=== PATIENT | female | born 1950 | race Caucasian/White ===

== ENCOUNTER 2018-07-28 15:41 | Inpatient (IN) | payer MEDICARE, OTHER ==
[2018-07-28] VITALS (9 sets, daily range): BP systolic 105–139; BP diastolic 63–82
[~2018-07-28] VITALS: Ht 170.2 cm; Wt 118.0 kg
[2018-07-28] MEDS ORDERED: lidocaine 1%/epinephrine 1:100,000 injection 50ml vial ONE (16:33)
[2018-07-28] MEDS ORDERED: cefazolin/dext.iso 2gm/100ml 100 ML IV ONE (16:33)
[2018-07-28 16:46] LABS: BASOPHILS # (AUTO) 0.1 X10'3 (0-0.2); BASOPHILS % (AUTO) 1.2 % (0-1); EOSINOPHILS # (AUTO) 0.1 X10'3 (0-0.9); EOSINOPHILS % (AUTO) 1.5 % (0-6); HEMATOCRIT 42.2 % (35.0-45.0); HEMOGLOBIN 14.1 g/dl (12.0-16.0); LYMPHOCYTES # (AUTO) 3.5 X10'3 (1.1-4.8); LYMPHOCYTES % (AUTO) 35.8 % (21-51); MEAN CORPUSCULAR HEMOGLOBIN 29.1 PG (27.0-31.0); MEAN CORPUSCULAR HGB CONC 33.5 g/dL (33.0-36.5); MONOCYTES # (AUTO) 0.7 X10'3 (0-0.9); MONOCYTES % (AUTO) 7.6 % (2-12); NEUTROPHILS # (AUTO) 5.3 X10'3 (1.8-7.7); NEUTROPHILS % (AUTO) 53.9 % (42-75); PLATELET COUNT 240 X10'3 (140-440); RED BLOOD COUNT 4.85 X10'6 (4.20-5.60); RED CELL DISTRIBUTION WIDTH 13.2 % (11.5-14.5); WHITE BLOOD COUNT 9.9 X10'3 (4.5-11.0)
[2018-07-28 17:00] LABS: PARTIAL THROMBOPLASTIN TIME 28 SECONDS (22-32)
[2018-07-28 17:02] LABS: ALANINE AMINOTRANSFERASE 58 U/L (12-78); ALBUMIN 3.7 G/DL (3.4-5.0); ALBUMIN/GLOBULIN RATIO 0.9 (1.1-1.5); ALKALINE PHOSPHATASE 93 IU/L (46-116); ANION GAP 13 (8-16); ASPARTATE AMINO TRANSFERASE 31 U/L (10-37); BLOOD UREA NITROGEN 19 MG/DL (7-18); BUN/CREATININE RATIO 19.8 (6.6-38.0); CALCIUM 10.2 MG/DL (8.5-10.1); CHLORIDE 102 MMOL/L (99-107); CREATININE 0.96 MG/DL (0.40-0.90); GLUCOSE 110 MG/DL (70-104); POTASSIUM 3.7 MMOL/L (3.5-5.1); SODIUM 139 MMOL/L (135-145); TOTAL CARBON DIOXIDE 23.6 MMOL/L (24-32); TOTAL PROTEIN 7.6 G/DL (6.4-8.2); eGFR 58 ML/MIN
[2018-07-28] MEDS ORDERED: UNABLE TO OBTAIN (17:08)
[2018-07-28 17:09] LABS: MAGNESIUM 1.2 MG/DL (1.5-2.4)
[2018-07-28] MEDS ORDERED: midazolam 2 mg/2 ml injection ONE ×2 (17:14→17:29)
[2018-07-28] MEDS ORDERED: fentaNYL/PF 50MCG/1 ML 2ML syringe ONE ×2 (17:14→17:29)
[2018-07-28] MEDS ORDERED: ceFAZolin 1000mg inj ONE (17:14)
[2018-07-28] MEDS ORDERED: proCHLORperazine 10 MG/2 ml inj ONE (17:29)
[2018-07-28] MEDS ORDERED: iohexol 350 MG/ML 50ML vial IV ONE (17:30)
--- NOTE | 2018-07-28 18:10 | NUR ---
Recieved report form DES Conley from the orthodontic laboratory technician. Patient will be transferred to the unit to recover after having pacemaker placed due to patient being found in a 3rd degree heart block. Patient is said to be on 2L with a NC. She is said to be Alert and Oriented x4. Will assess when patient arrives on the floor and assume care.
--- NOTE | 2018-07-28 18:20 | NUR ---
Patient arrived to the ACCE unit, Patient is alert and oriented x4, patient is stable and in no distress, vitals are stable and she is afebrile. Patient is accompanied by her . The pacemaker was placed to the Left chest and the dressing is intact with small amount of serosanguinous drainage. Assessment completed and assumed care of patient, will continue to monitor patient for duration of shift.
[2018-07-28] MEDS ORDERED: normal saline 1000ml 1,000 ML IV SCH (18:45)
[2018-07-28] MEDS ORDERED: HYDROcodone/acetaminophen 5mg/325mg tablet PO PRN ×2 (18:50→20:55)
[2018-07-28] MEDS ORDERED: HYDROcodone/acetaminophen 10/325mg tab PO PRN ×2 (18:50→20:55)
[2018-07-28] MEDS ORDERED: LORazepam 1 MG tablet PO PRN (18:50)
[2018-07-28] MEDS ORDERED: LISI-604 PO (18:50)
[2018-07-28] MEDS ORDERED: METF500T PO (18:58)
[2018-07-28] MEDS ORDERED: TRIA1TAB3 PO (18:59)
[2018-07-28] MEDS ORDERED: LOVA20TA2 PO (19:00)
[2018-07-28] MEDS ORDERED: KRIL1CAP29 PO (19:02)
[2018-07-28] MEDS ORDERED: magnesium hydroxide 30ml (MOM) UD suspension PO PRN (20:55)
[2018-07-28] MEDS ORDERED: morphine 2 MG/ML inj. syringe IV PRN ×2 (20:55)
[2018-07-28] MEDS ORDERED: ondansetron/PF 4mg/2ml inj IV PRN (20:55)
[2018-07-28] MEDS ORDERED: acetaminophen 325mg tablet PO PRN (20:55)
[2018-07-28] MEDS ORDERED: mag hydrox/Alum hydrox/simeth 30ml oral suspension PO PRN (20:55)
[2018-07-28] MEDS ORDERED: LIPIDS PO SCH (21:00)
[2018-07-28] MEDS ORDERED: atorvastatin 10mg tablet PO SCH (21:00)
[2018-07-28] MEDS ORDERED: DHA PO SCH (21:00)
[2018-07-28] MEDS ORDERED: EPA PO SCH (21:00)
[2018-07-28] MEDS ORDERED: OMEGA PO SCH (21:00)
[2018-07-28] MEDS ORDERED: KRILL PO SCH (21:00)
[2018-07-28] MEDS ORDERED: lisinopril 5mg tablet PO SCH (21:00)
[2018-07-29] MEDS: ceFAZolin 1GM/D5W- ADD-VANTAGE 50 ML IV SCH ×2 (01:10→07:23)
[2018-07-29 02:00] VITALS: BP 103/61
[2018-07-29 02:15] VITALS: BP 103/61
[2018-07-29 05:13] LABS: BASOPHILS # (AUTO) 0.1 X10'3 (0-0.2); BASOPHILS % (AUTO) 0.8 % (0-1); EOSINOPHILS # (AUTO) 0.1 X10'3 (0-0.9); EOSINOPHILS % (AUTO) 1.2 % (0-6); HEMATOCRIT 37.9 % (35.0-45.0); HEMOGLOBIN 12.7 g/dl (12.0-16.0); LYMPHOCYTES # (AUTO) 2.8 X10'3 (1.1-4.8); LYMPHOCYTES % (AUTO) 32.4 % (21-51); MEAN CORPUSCULAR HEMOGLOBIN 29.2 PG (27.0-31.0); MEAN CORPUSCULAR HGB CONC 33.4 g/dL (33.0-36.5); MEAN CORPUSCULAR VOLUME 87.4 FL (78-98); MEAN PLATELET VOLUME 8.5 FL (7.4-10.4); MONOCYTES # (AUTO) 0.6 X10'3 (0-0.9); MONOCYTES % (AUTO) 7.3 % (2-12); NEUTROPHILS % (AUTO) 58.3 % (42-75); PLATELET COUNT 196 X10'3 (140-440); RED BLOOD COUNT 4.34 X10'6 (4.20-5.60); RED CELL DISTRIBUTION WIDTH 13.2 % (11.5-14.5); WHITE BLOOD COUNT 8.6 X10'3 (4.5-11.0)
--- NOTE | 2018-07-29 06:00 | NUR ---
Patient in room MED 310. I have received report from Kacie NUNES and had the opportunity to ask questions and assume patient care.
--- NOTE | 2018-07-29 06:00 | NUR ---
Problems reprioritized. Patient report given, questions answered & plan of care reviewed with DES Loo.
[2018-07-29] MEDS ORDERED: magnesium 4gm in 100ml NS 100 ML IV PRN (06:55)
[2018-07-29] MEDS ORDERED: magnesium Cl slow-release 64mg tablet PO PRN (06:55)
[2018-07-29] MEDS ORDERED: potassium Cl 40MEQ/NS 500ml 500 ML IV PRN ×2 (06:55)
[2018-07-29] MEDS ORDERED: potassium Cl 20 mEq SR tablet PO PRN ×2 (06:55)
[2018-07-29] MEDS ORDERED: magnesium 2GM in 50ml NS 50 ML IV PRN (06:55)
[2018-07-29 07:00] VITALS: BP 146/78
[2018-07-29 07:18] LABS: MAGNESIUM 1.2 MG/DL (1.5-2.4); POTASSIUM 3.6 MMOL/L (3.5-5.1)
[2018-07-29] MEDS ORDERED: metFORMIN 500mg tablet PO SCH (07:30)
[2018-07-29] MEDS ORDERED: triamterene/HCTZ 37.5/25mg tablet PO SCH (08:00)
[2018-07-29] MEDS ORDERED: MAGN400C PO (08:42)
[2018-07-29] MEDS ORDERED: CEPH500C2 PO (08:59)
--- NOTE | 2018-07-29 09:10 | NUR ---
I spoke to Dr. Haney about this pt's electrolyte imbalance. I replaced her Mag per protocol and gave a 40 meq of K per Dr. Haney due to the pt. have cardiac issues he would like her K to be higher.
[2018-07-29 11:00] VITALS: BP 114/64
--- NOTE | 2018-07-29 12:19 | NUR ---
Pt. given discharge instructions with her present, all questions answered. PIV removed without complication. The pt's [employer] booklet was not in her chart so I made a copy of model and sent that with her and told her she will need to ask for a replacement when she follows up with her doctor.
== END 2018-07-29 12:30 | disposition home or self-care (01) | DRG 243 ==
LOC: ER 15:42 → MED 3N 19:58
PROVIDERS: ADMIT Internal Medicine Interventional Cardiology; ATTEND Family Medicine
PROC: 0JH606Z Insertion of Pacemaker, Dual Chamber into Chest Subcutaneous Tissue and Fascia, Open Approach (ICD-10-PCS; principal; 2018-07-28)
PROC: 02HK3JZ Insertion of Pacemaker Lead into Right Ventricle, Percutaneous Approach (ICD-10-PCS; 2018-07-28)
PROC: 02H63JZ Insertion of Pacemaker Lead into Right Atrium, Percutaneous Approach (ICD-10-PCS; 2018-07-28)
DX: I49.5 Sick sinus syndrome (principal); I44.2 Atrioventricular block, complete; E11.9 Type 2 diabetes mellitus without complications; E78.5 Hyperlipidemia, unspecified; E78.00 Pure hypercholesterolemia, unspecified; E83.42 Hypomagnesemia; I10 Essential (primary) hypertension; Z88.1 Allergy status to other antibiotic agents; Z79.84 Long term (current) use of oral hypoglycemic drugs
CPT/HCPCS: 33208; 36415; 71045; 80053; 82948; 83735; 83880; 84132; 85025; 85610; 85730; 87070; 93005; 96360; 99152; 99153; 99285; A4565; C1785; C1898; G0378; J0690; J0780; J2250; J3010; J3475; J3490; Q9967

== ENCOUNTER 2018-08-22 20:31 | Emergency (ER) | payer MEDICARE ==
[~2018-08-22] VITALS: Ht 170.2 cm; Wt 118.6 kg
[~2018-08-22 20:31] MED LIST: CEPH500C2 PO; KRIL1CAP29 PO; LISI-604 PO; LOVA20TA2 PO; MAGN400C PO; METF500T PO; TRIA1TAB3 PO
[2018-08-22 21:13] LABS: BASOPHILS # (AUTO) 0.1 X10'3 (0-0.2); BASOPHILS % (AUTO) 1.3 % (0-1); EOSINOPHILS # (AUTO) 0.1 X10'3 (0-0.9); EOSINOPHILS % (AUTO) 1.3 % (0-6); HEMATOCRIT 42.7 % (35.0-45.0); HEMOGLOBIN 14.1 g/dl (12.0-16.0); LYMPHOCYTES # (AUTO) 2.3 X10'3 (1.1-4.8); LYMPHOCYTES % (AUTO) 26.3 % (21-51); MEAN CORPUSCULAR HEMOGLOBIN 28.7 PG (27.0-31.0); MEAN CORPUSCULAR VOLUME 86.9 FL (78-98); MEAN PLATELET VOLUME 8.2 FL (7.4-10.4); MONOCYTES # (AUTO) 0.5 X10'3 (0-0.9); MONOCYTES % (AUTO) 5.4 % (2-12); NEUTROPHILS # (AUTO) 5.6 X10'3 (1.8-7.7); NEUTROPHILS % (AUTO) 65.7 % (42-75); PLATELET COUNT 260 X10'3 (140-440); RED BLOOD COUNT 4.92 X10'6 (4.20-5.60); RED CELL DISTRIBUTION WIDTH 13.3 % (11.5-14.5); WHITE BLOOD COUNT 8.6 X10'3 (4.5-11.0)
[2018-08-22 21:28] LABS: ANION GAP 10 (8-16); CHLORIDE 101 MMOL/L (99-107); GLUCOSE 149 MG/DL (70-104); POTASSIUM 4.1 MMOL/L (3.5-5.1); SODIUM 136 MMOL/L (135-145); TOTAL CARBON DIOXIDE 25.1 MMOL/L (24-32)
[2018-08-22 21:29] LABS: ALANINE AMINOTRANSFERASE 52 U/L (12-78); ALBUMIN 3.8 G/DL (3.4-5.0); ALKALINE PHOSPHATASE 103 IU/L (46-116); ASPARTATE AMINO TRANSFERASE 28 U/L (10-37); BILIRUBIN,TOTAL 0.8 MG/DL (0.1-1.0); BLOOD UREA NITROGEN 15 MG/DL (7-18); BUN/CREATININE RATIO 16.9 (6.6-38.0); CALCIUM 9.7 MG/DL (8.5-10.1); CREATININE 0.89 MG/DL (0.40-0.90); TOTAL PROTEIN 7.8 G/DL (6.4-8.2); eGFR 63 ML/MIN
[2018-08-22 21:39] LABS: PARTIAL THROMBOPLASTIN TIME 28 SECONDS (22-32)
[2018-08-22] MEDS ORDERED: meclizine 12.5mg tablet PO ONE (23:25)
[2018-08-23] MEDS ORDERED: ondansetron 4mg rapidly disintigrating tab PO ONE (00:15)
--- NOTE | 2018-08-23 00:28 | NUR ---
VIPUL FLANAGAN AT [facility] FOR INTERROGATION
[2018-08-23] MEDS ORDERED: MECL-111 PO (01:50)
--- NOTE | 2018-08-23 01:53 | NUR ---
DR CASTILLO TALKING WITH PT AND HER ABOUT DISCHARGE. PT HAD BEEN FEELING SLIGHTLY BETTER, BUT THEN WAS SIGNING PAPERWORK AND ANSWERING QUESTIONS BY REGISTRATION , AND THEN BEGAN HAVING EMESIS AGAIN. TO HOLD DC AND GIVEN IV MEDS.
[2018-08-23] MEDS ORDERED: ondansetron/PF 4mg/2ml inj IV ONE (01:55)
[2018-08-23] MEDS ORDERED: LORazepam 2 mg/ml vial IV ONE (01:55)
[2018-08-23] MEDS ORDERED: normal saline 1000ML IV soln IVB ONE (01:55)
--- NOTE | 2018-08-23 03:06 | NUR ---
PT GIVEN ATIVAN AND ZOFRAN. CURRENTLY SLEEPING. REMAINS AT BEDSIDE. CURRENT VSS.
--- NOTE | 2018-08-23 03:50 | NUR ---
PT REMAINS ASLEEP, STABLE VS. PT AWAKENED TO CHECK IN AND SHE REPORTS NO NAUSEA AND NOT DIZZINESS .
--- NOTE | 2018-08-23 05:08 | NUR ---
DR CASTILLO TALKING WITH PT AND ABOUT REFERRAL TO THE [facility].
[2018-08-23 05:11] VITALS: BP 128/82
== END 2018-08-23 05:53 | disposition home or self-care (01) ==
LOC: ER 20:31
DX: R42 Dizziness and giddiness (principal); H55.09 Other forms of nystagmus; E78.00 Pure hypercholesterolemia, unspecified; I10 Essential (primary) hypertension; E11.9 Type 2 diabetes mellitus without complications; Z88.1 Allergy status to other antibiotic agents; Z79.899 Other long term (current) drug therapy; Z95.0 Presence of cardiac pacemaker
CPT/HCPCS: 36415; 70450; 71045; 80053; 84484; 85025; 85610; 85730; 93005; 96361; 96374; 96375; 99284; J2060; J2405; J7030; J8597